=== PATIENT | male | born 1965 | race Two or more races ===

== ENCOUNTER 2017-08-24 07:17 | Emergency (ER) | payer MEDICARE, OTHER ==
[~2017-08-24] VITALS: Ht 167.6 cm; Wt 59.0 kg
[2017-08-24 07:24] VITALS: BP 110/64
--- NOTE | 2017-08-24 07:48 | Emergency Room Report ---
History of Present Illness General Chief Complaint: Skin Rash/Abscess Source: Patient, EMS Present Illness HPI Patient presents emergency department today complaining of a rash on the left lower extremity. Patient is homeless. Patient states that he has had a rash for several weeks. He actually had a wrap by paramedics once before. He denies any fever chest pain shortness breath. Denies any nausea vomiting diarrhea chills. Denies any discharge from the leg. No other complaints are noted. Symptoms noted to be mild to moderate. Exam of patient's leg actually shows a decubitus ulcer. Patient denies any prior injury to this. Denies prior episodes of this. States that he's able to get medications.No other modifying factors. No other associated signs and symptoms. No other complaints were noted. Allergies: Coded Allergies: No Known Allergies (Unverified , 08/24/17) Patient History Past Medical History: none Past Surgical History: none Social History: Denies: smoking, alcohol use, drug use Reviewed Nursing Documentation: PMH: Agreed, PSxH: Agreed Nursing Documentation-PMH Past Medical History: No History, Except For History Of Psychiatric Problem: Yes Review of Systems All Other Systems: negative except mentioned in HPI Physical Exam Vital Signs Date Time Temp Pulse Resp B/P (MAP) Pulse Ox O2 Delivery O2 Flow Rate FiO2 08/24/17 07:09 97.5 110 18 110/64 98 Room Air Sp02 EP Interpretation: reviewed, normal General Appearance: normal inspection, well appearing, no apparent distress, alert Head: atraumatic Eyes: bilateral eye normal inspection ENT: normal ENT inspection, hearing grossly normal, normal voice Neck: normal inspection, full range of motion, supple, no bony tend Respiratory: normal inspection, lungs clear, normal breath sounds, no respiratory distress, no retraction, no wheezing Cardiovascular #1: regular rate, rhythm, no edema Gastrointestinal: normal inspection, normal bowel sounds, non tender, soft, no guarding, no hernia Genitourinary: no CVA tenderness Musculoskeletal: swelling - mild swelling left lower extremity, other - small decubitus/venous status ulcer, 2 cm in width no evidence of infection Neurologic: normal inspection, alert, responsive, speech normal Psychiatric: normal inspection, judgement/insight normal, mood/affect normal Skin: other - ulcers previously stated Medical Decision Making Diagnostic Impression: Primary Impression: Venous stasis ulcer ER Course Patient presents emergency department today with an ulcer in the left lower chimney. Differential considerations include decubitus ulcer, venous stasis ulcer, cellulitis, abscess just to name a few. Patient's exam is consistent with a venous stasis ulcer. Therefore felt the patient required good wound care. Patient's wound was dressed with Silvadene. Patient was given a tube of Silvadene to use. She he is advised to followup with [facility].Patient is advised to follow up with primary doctor in 2-3 days and return the emergency room for any worsening symptoms and as needed. Last Vital Signs Date Time Temp Pulse Resp B/P (MAP) Pulse Ox O2 Delivery O2 Flow Rate FiO2 08/24/17 07:24 97.5 110 18 110/64 98 Room Air Status: improved Disposition: HOME, SELF-CARE Condition: Stable Referrals: NOT CHOSEN IPA/,REFERRING (PCP) Patient Instructions: Skin Ulcer MYRON ELMORE M.D. Aug 24, 2017 07:48
[2017-08-24 08:05] VITALS: BP 109/67
== END 2017-08-24 08:13 | disposition home or self-care (01) ==
LOC: EDBD 07:17 → EMR 07:31
DX: I83.029 Varicose veins of left lower extremity with ulcer of unspecified site (principal); L89.899 Pressure ulcer of other site, unspecified stage
CPT/HCPCS: 99282

== ENCOUNTER 2017-09-07 11:02 | Emergency (ER) | payer MEDICARE, OTHER ==
[~2017-09-07] VITALS: Ht 149.9 cm; Wt 49.9 kg
--- NOTE | 2017-09-07 13:16 | Emergency Room Report ---
History of Present Illness General Chief Complaint: Pain Source: EMS Present Illness HPI 52 YO Male presents to the ED c/o left leg pain that is localized 7/10 in severity pain/tenderness with open wound to the anterior left dukes x 4 weeks. pt. reports that he was given a cream at previous visit, and is now out of that medication. pt. states he feels the wound is slowly improving. pt. also reports an itchy rash on the left wrist. denies bleeding. pt. denies trauma or fall, denies fevers, chills, or erythema . denies fevers, chills, abdominal pain, swollen tender lymph nodes, swelling of the lips/tongue, or rashes elsewhere on the body. Allergies: Coded Allergies: No Known Allergies (Unverified , 08/24/17) Patient History Past Medical History: see triage record Past Surgical History: none Pertinent Family History: none Reviewed Nursing Documentation: PMH: Agreed, PSxH: Agreed Nursing Documentation-PMH Past Medical History: No History, Except For Review of Systems All Other Systems: negative except mentioned in HPI Physical Exam Vital Signs Date Time Temp Pulse Resp B/P (MAP) Pulse Ox O2 Delivery O2 Flow Rate FiO2 09/07/17 10:59 120 16 104/75 98 Room Air Sp02 EP Interpretation: reviewed, normal General Appearance: well appearing, no apparent distress, alert, GCS 15, other - disheveled Head: normocephalic, atraumatic Eyes: bilateral eye normal inspection, bilateral eye PERRL ENT: hearing grossly normal, normal pharynx, normal voice Neck: full range of motion, no meningismus, no bony tend Respiratory: chest non-tender, lungs clear, normal breath sounds, no rhonchi, no respiratory distress, no wheezing Cardiovascular #1: no edema, normal capillary refill, tachycardia Cardiovascular #2: 2+ dorsalis pedis (R), 2+ dorsalis pedis (L) Gastrointestinal: non tender, soft Musculoskeletal: gait/station normal, normal range of motion, no calf tenderness Neurologic: alert, oriented x3, responsive, motor strength/tone normal, sensory intact, normal gait, speech normal, grossly normal Psychiatric: other - pt has rapid speech, and is picking excessively at scabs on arms and scratching at head. -suspect drug use in conjunction with tachycardia and no evidence of obvious infection. Skin: other - Venous Stasis Ulcer of the left anterior dukes approximately 4.5 cm in diameter with no evidence of secondary cellulitis. Pt. also has 1.5 cm anular area on the left wrist with moderate excoriation, no blistres, no vessicles. pt. has many excoriations and small scabs through out the skin on neck, scalp, UE's and bilateral LE's. Lymphatic: no adenopathy Medical Decision Making PA Attestation Dr. Felipe is my supervising Physician whom patient management has been discussed with. Diagnostic Impression: Primary Impression: Venous stasis ulcer Qualified Codes: I87.2 - Venous insufficiency (chronic) (peripheral); L97.801 - Non-pressure chronic ulcer of other part of unspecified lower leg limited to breakdown of skin Additional Impression: Tinea corporis ER Course 52 YO Male presents to the ED c/o left leg pain that is localized 7/10 in severity pain/tenderness with open wound to the anterior left dukse x 4 weeks. pt. reports that he was given a cream at previous visit, and is now out of that medication. pt. states he feels the wound is slowly improving. pt. also reports an itchy rash on the left wrist. denies bleeding. pt. denies trauma or fall, denies fevers, chills, or erythema . denies fevers, chills, abdominal pain, swollen tender lymph nodes, swelling of the lips/tongue, or rashes elsewhere on the body. Ddx considered but are not limited to cellulitis, chronic venous stasis ulcer, fistula, decubitus ulcer, necrotizing fasciitis, sepsis, Drug abuse just to name a few. Vital signs: are WNL, pt. is afebrile, noted to be tachycardic -Reviewed previous visits charts and pt. consistently tachycardic. H&PE are most consistent with: Venous Stasis Ulcer of the left anterior dukes approximately 4.5 cm in diameter with no evidence of secondary cellulitis. ORDERS: none required at this time, the diagnosis is clinical ED INTERVENTIONS: - Wound is cleaned. -Silvadene cream is applied. - sterile dressing is applied. - D/w pt. to follow up with wound care, will d/c with topical abx. -d/w pt. about keeping the extremity elevated and the wound clean, as well as alarming symptoms that would indicate prompt return to the ED. -PT given list of free/reduced cost health clinics for primary care follow up. gave ED return precautions for worsening or new symptoms, otherwise follow up with a primary care provider in 3-5 days. DISCHARGE: At this time pt. is stable for d/c to home. Will provide printed patient care instructions, and any necessary prescriptions. Care plan and follow up instructions have been discussed with the patient prior to discharge. Last Vital Signs Date Time Temp Pulse Resp B/P (MAP) Pulse Ox O2 Delivery O2 Flow Rate FiO2 09/07/17 10:59 120 16 104/75 98 Room Air Disposition: HOME, SELF-CARE Condition: Stable Scripts Terbinafine Hcl (TERBINAFINE HCL) 30 Gm Cream..g. 1 APPLIC TP BID, #30 GM Prov: Kathleen Thompson 09/07/17 Silver Sulfadiazine (SILVADENE) 20 Gm Cream..g. 1 APPLIC TP DAILY, #20 GM Prov: Kathleen Thompson 09/07/17 Clindamycin Hcl (CLINDAMYCIN HCL) 300 Mg Capsule 300 MG ORAL FOUR TIMES A DAY for 7 Days, #28 CAP Prov: Kathleen Thompson 09/07/17 Referrals: NOT CHOSEN [facility]/MD,REFERRING (PCP) Patient Instructions: Stasis Ulcer, Eyes-pd-Eiwe Additional Instructions: Take medications as directed. Follow up with a Primary Care Provider in 3-5 days, even if your symptoms have resolved. --Please review list of primary care clinics, if you do not already have a primary care provider Return sooner to ED if new symptoms occur, or current symptoms become worse. - Please note that this Emergency Department Report was dictated using [employer] biology technology software, occasionally this can lead to erroneous entry secondary to interpretation by the dictation equipment. Kathleen Thompson Sep 07, 2017 13:16
[2017-09-07] MEDS: Clindamycin 150mg cap ORAL SCH (13:27)
[2017-09-07] MEDS ORDERED: CLINDAMYCIN HC300 MG ORAL (13:52)
[2017-09-07] MEDS ORDERED: SILVADENE20 GM TP (13:52)
[2017-09-07] MEDS ORDERED: TERBINAFINE HCL30 GM TP (13:52)
[2017-09-07 14:35] VITALS: BP 124/74
== END 2017-09-07 14:35 | disposition home or self-care (01) ==
LOC: EDBD 11:02 → EMR 12:17
DX: I87.2 Venous insufficiency (chronic) (peripheral) (principal); L97.829 Non-pressure chronic ulcer of other part of left lower leg with unspecified severity; B35.4 Tinea corporis
CPT/HCPCS: 99284